=== PATIENT | female | born 1985 | race Caucasian/White ===

== ENCOUNTER 2017-10-26 12:38 | Emergency (ER) | payer OTHER ==
[2017-10-26 14:14] VITALS: BP 106/69
--- NOTE | 2017-10-26 14:19 | UC ---
Throat Pain/Nasal Uday HPI - HPI Summary HPI Summary: 31 y/o female presents to the urgent care c/o sinus pain and nasal congestion w / green nasal discharge for the past 2 weeks. Pt reports symptoms started w/ common cold and now she is having a green discharge. Pain and VAZQUEZ is 5/10 specially w/ b/L ear pressure. Pt has not taking anything to alleviate symptoms. Pt denies fever, SOB, chest pain, abdominal pain, N/V/D. - History of Current Complaint Chief Complaint: UCRespiratory Stated Complaint: SINUS,RESPIRATORY Time Seen by Provider: 10/26/17 14:14 Hx Obtained From: Patient Hx Last Menstrual Period: 09/26/17 ?: No Onset/Duration: Gradual Onset, Lasting Weeks - 2 weeks, Still Present, Worse Since - last week Severity: Moderate Pain Intensity: 5 Pain Scale Used: 0-10 Numeric Cough: Sputum Appears - yellowish Associated Signs & Symptoms: Positive: Sinus Discomfort, Nasal Discharge. Negative: Dysphagia, Fever - Epiglottits Risk Factors Epiglottis Risk Factors: Negative - Allergies/Home Medications Allergies/Adverse Reactions: Allergies Allergy/AdvReac Type Severity Reaction Status Date / Time No Known Allergies Allergy Verified 10/26/17 14:09 PMH/Surg Hx/FS Hx/Imm Hx Previously Healthy: Yes - Pt denies PMHX - Surgical History Surgical History: None - Family History Known Family History: Positive: Cardiac Disease - Social History Occupation: Employed Full-time Lives: With Family Alcohol Use: None Substance Use Type: None Smoking Status (MU): Heavy Every Day Tobacco Smoker Type: Cigarettes Amount Used/How Often: 1/2 pack day Review of Systems Constitutional: Negative Skin: Negative Eyes: Negative ENT: Ear Ache - B/L ear pressure, Nasal Discharge, Sinus Congestion, Sinus Pain/ Tenderness Respiratory: Cough - productive w/ yellowish phlegm Cardiovascular: Negative Gastrointestinal: Negative Genitourinary: Negative Motor: Negative Neurovascular: Negative Musculoskeletal: Negative Neurological: Headache Psychological: Negative Is Patient Immunocompromised?: No All Other Systems Reviewed And Are Negative: Yes Physical Exam - Summary Physical Exam Summary: Vitals: reviewed General: Well developed, well-nourished female patient with NAD. Head and face: Normocephalic and atraumatic, Positive moderate tenderness over the frontal and maxillary sinuses.. Eyes: PERRLA, EOMI x 2. Normal conjunctiva. No eye discharge. ENT: left exteranl ear canal impacted w/ cerumen unable to visualize TM, RT exterenal ear canal clear, LF TM WNL. Nose: edematous and erythematous nasal mucosa with with yellowish discharge and erythematous mucosa. Pharynx with erythema, no exudate. +PND yellowish Neck: Supple, no JVD, no carotid bruits and no lymphadenopathy. Lungs: clear, no rales, no rhonchi, no wheezes. CVS: RRR, S1 and S2 present no murmurs or gallops appreciated. Abdomen: soft nontender with positive bowel sounds. Extremities: no edema noted. Neuro: WNL. Skin: warm and dry Triage Information Reviewed: Yes Vital Signs: Initial Vital Signs Temp 98.1 F 10/26/17 14:07 Pulse 84 10/26/17 14:07 Resp 16 10/26/17 14:07 BP 106/69 10/26/17 14:07 Pulse Ox 99 10/26/17 14:07 Throat Pain/Nasal Course/Dx - Course Course Of Treatment: 31 y/o female presents to the urgent care c/o sinus pain and nasal congestion w/ green nasal discharge for the past 2 weeks. Pt reports symptoms started w/ common cold and now she is having a green discharge. Pain and VAZQUEZ is 5/10 specially w/ b/L ear pressure. Pt has not taking anything to alleviate symptoms. Pt denies fever, SOB, chest pain, abdominal pain, N/V/D. Hx obtained. Pt w/ Acute bacterial sinusitis and left external ear canal w/ cerumen impaction on examination. Pt with 2 weeks of symptoms getting worse. Pt Rx Augmentin PO and flonase nasal spray. Also Debrox otic drops to soften cerumen. Discharge instructions explained to Pt. Advised to Return to the clinic or PCP if symptoms do not improve.Pt understood and agreed with plan of care. - Differential Dx/Diagnosis Differential Diagnosis/HQI/PQRI: Influenza, Laryngitis, Otitis Media, Pharyngitis, Sinusitis, URI Provider Diagnoses: 1- Acute bacterial sinusitis. 2-Left external ear canl cerumen impaction Discharge - Sign-Out/Discharge Documenting (check all that apply): Discharge/Admit/Transfer - D/C home - Discharge Plan Condition: Stable Disposition: HOME Prescriptions: Amoxicillin/Clavulanate TAB* [Augmentin TAB 875*] 875 mg PO BID #20 tab Carbamide Peroxide 6.5% OTIC* [DEBROX 6.5% Otic*] 5 drop LEFT EAR BID #1 bottle Fluticasone NASAL SPRAY 50MCG* [Flonase NASAL SPRAY 50MCG*] 2 spray BOTH NARES DAILY #1 btl Patient Education Materials: Sinusitis (ED), Cerumen Impaction (ED) Referrals: Carolina Childers NP [Primary Care Provider] - 3 Days Additional Instructions: 1- Please increase fluid intake and rest. take full course of antibiotic to avoid resistance 2-Use Flonase as directed to help drain fluid. Also buy saline drops to clear sinuses 3-Take Tylenol PO to alleviates sinus pain or Headache 4- apply Debrox otic drops to soften ceumen in your left ear as directed 4-Return to the clinic or PCP in 3 days if symptoms do not improve for further management and treatment - Billing Disposition and Condition Condition: STABLE Disposition: Home
== END 2017-10-26 14:38 | disposition home or self-care (01) ==
LOC: UCCORT 12:38
DX: J01.90 Acute sinusitis, unspecified (principal); B96.89 Other specified bacterial agents as the cause of diseases classified elsewhere; H61.22 Impacted cerumen, left ear; F17.210 Nicotine dependence, cigarettes, uncomplicated
CPT/HCPCS: 99212; G0463